=== PATIENT | male | born 1970 | race African-American/Black ===

== ENCOUNTER 2016-07-29 16:07 | Emergency (ER) | payer SELFPAY ==
[2016-07-29 18:00] VITALS: BP 140/84
== END 2016-07-29 18:00 | disposition other institution (70) ==
LOC: ED 16:07
DX: S60.512A Abrasion of left hand, initial encounter (principal); R00.0 Tachycardia, unspecified; F17.210 Nicotine dependence, cigarettes, uncomplicated; F11.20 Opioid dependence, uncomplicated; W17.89XA Other fall from one level to another, initial encounter; Y93.89 Activity, other specified; Y99.8 Other external cause status; Y92.89 Other specified places as the place of occurrence of the external cause

== ENCOUNTER 2016-07-29 16:07 | Emergency (ER) | payer OTHER | END 2016-07-29 18:00 | disposition other institution (70) | LOC: ED 16:07 | DX: Z02.89 Encounter for other administrative examinations (principal); R00.0 Tachycardia, unspecified; S60.512A Abrasion of left hand, initial encounter; F17.210 Nicotine dependence, cigarettes, uncomplicated; F12.229 Cannabis dependence with intoxication, unspecified; W17.89XA Other fall from one level to another, initial encounter; Y99.8 Other external cause status; Y93.89 Activity, other specified; Y92.89 Other specified places as the place of occurrence of the external cause ==